=== PATIENT | male | born 1975 | race Two or more races ===

== ENCOUNTER 2019-12-20 17:30 | Emergency (ER) | payer MEDICAID ==
[~2019-12-20 17:30] MED LIST: GABA-347 PO; INSU100V5 SQ; LANTUS SQ
== END 2019-12-20 19:14 | disposition left against medical advice (07) ==
LOC: ER 17:30
DX: R05 Cough (principal); Z53.21 Procedure and treatment not carried out due to patient leaving prior to being seen by health care provider

== ENCOUNTER 2020-01-05 23:29 | Emergency (ER) | payer MEDICAID ==
[~2020-01-05] VITALS: Ht 175.3 cm; Wt 65.0 kg
[2020-01-05] MEDS ORDERED: normal saline 1000ml 1,000 ML IV ONE (23:40)
[2020-01-05 23:47] LABS: BASOPHILS # (AUTO) 0.1 X10'3 (0-0.2); BASOPHILS % (AUTO) 1.4 % (0-1); EOSINOPHILS # (AUTO) 0.2 X10'3 (0-0.9); EOSINOPHILS % (AUTO) 2.6 % (0-6); HEMATOCRIT 37.3 % (42.0-52.0); HEMOGLOBIN 12.5 g/dl (14.0-17.9); LYMPHOCYTES # (AUTO) 3.6 X10'3 (1.1-4.8); LYMPHOCYTES % (AUTO) 44.9 % (21-51); MEAN CORPUSCULAR HEMOGLOBIN 29.7 PG (27.0-31.0); MEAN CORPUSCULAR HGB CONC 33.4 g/dL (33.0-36.5); MEAN PLATELET VOLUME 8.1 FL (7.4-10.4); MONOCYTES # (AUTO) 0.7 X10'3 (0-0.9); MONOCYTES % (AUTO) 8.3 % (2-12); NEUTROPHILS # (AUTO) 3.4 X10'3 (1.8-7.7); NEUTROPHILS % (AUTO) 42.8 % (42-75); PLATELET COUNT 305 X10'3 (140-440); RED BLOOD COUNT 4.19 X10'6 (4.70-6.10); RED CELL DISTRIBUTION WIDTH 13.7 % (11.5-14.5)
[2020-01-06 00:02] LABS: ALANINE AMINOTRANSFERASE 90 U/L (12-78); ALBUMIN 3.8 G/DL (3.4-5.0); ALBUMIN/GLOBULIN RATIO 1.1 (1.1-1.5); ALKALINE PHOSPHATASE 142 IU/L (46-116); ANION GAP 11 (8-16); ASPARTATE AMINO TRANSFERASE 49 U/L (10-37); BILIRUBIN,TOTAL 0.6 MG/DL (0.1-1.0); BLOOD UREA NITROGEN 21 MG/DL (7-18); BUN/CREATININE RATIO 15.9 (5.4-32.0); CALCIUM 9.5 MG/DL (8.5-10.1); CHLORIDE 96 MMOL/L (99-107); CREATININE 1.32 MG/DL (0.60-1.10); GLUCOSE 308 MG/DL (70-104); POTASSIUM 3.7 MMOL/L (3.5-5.1); SODIUM 135 MMOL/L (135-145); TOTAL CARBON DIOXIDE 28.2 MMOL/L (24-32); TOTAL PROTEIN 7.2 G/DL (6.4-8.2); eGFR 59 ML/MIN
[2020-01-06] MEDS ORDERED: acetaminophen 325mg tablet PO ONE (01:15)
[2020-01-06 01:36] VITALS: BP 134/88
== END 2020-01-06 01:38 | disposition home or self-care (01) ==
LOC: ER 23:29
DX: E11.65 Type 2 diabetes mellitus with hyperglycemia (principal); M79.10 Myalgia, unspecified site; F19.10 Other psychoactive substance abuse, uncomplicated; N17.9 Acute kidney failure, unspecified; E78.00 Pure hypercholesterolemia, unspecified; I10 Essential (primary) hypertension; F31.9 Bipolar disorder, unspecified; F20.9 Schizophrenia, unspecified; F12.90 Cannabis use, unspecified, uncomplicated; F15.90 Other stimulant use, unspecified, uncomplicated; F11.90 Opioid use, unspecified, uncomplicated; Z86.19 Personal history of other infectious and parasitic diseases; Z59.0 Homelessness; Z88.8 Allergy status to other drugs, medicaments and biological substances; Z79.4 Long term (current) use of insulin; Z79.899 Other long term (current) drug therapy
CPT/HCPCS: 36415; 80053; 82948; 85025; 96360; 99283; J7030

== ENCOUNTER 2020-01-23 22:03 | Emergency (ER) | payer MEDICAID ==
[~2020-01-23] VITALS: Ht 175.3 cm; Wt 49.0 kg
[2020-01-23] MEDS ORDERED: normal saline 1000ML IV soln IVB ONE (22:50)
[2020-01-23 23:03] LABS: BASOPHILS # (AUTO) 0.1 X10'3 (0-0.2); BASOPHILS % (AUTO) 1.2 % (0-1); EOSINOPHILS # (AUTO) 0.2 X10'3 (0-0.9); EOSINOPHILS % (AUTO) 3.1 % (0-6); HEMATOCRIT 39.5 % (42.0-52.0); HEMOGLOBIN 12.8 g/dl (14.0-17.9); LYMPHOCYTES % (AUTO) 38.9 % (21-51); MEAN CORPUSCULAR HGB CONC 32.3 g/dL (33.0-36.5); MEAN CORPUSCULAR VOLUME 92.8 FL (78-98); MEAN PLATELET VOLUME 8.3 FL (7.4-10.4); MONOCYTES # (AUTO) 0.4 X10'3 (0-0.9); MONOCYTES % (AUTO) 8.6 % (2-12); NEUTROPHILS # (AUTO) 2.4 X10'3 (1.8-7.7); NEUTROPHILS % (AUTO) 48.2 % (42-75); PLATELET COUNT 238 X10'3 (140-440); RED BLOOD COUNT 4.26 X10'6 (4.70-6.10)
[2020-01-23 23:11] LABS: ALANINE AMINOTRANSFERASE 54 U/L (12-78); ALBUMIN 3.8 G/DL (3.4-5.0); ALBUMIN/GLOBULIN RATIO 1.1 (1.1-1.5); ALKALINE PHOSPHATASE 161 IU/L (46-116); ANION GAP 4 (8-16); ASPARTATE AMINO TRANSFERASE 33 U/L (10-37); BILIRUBIN,TOTAL 0.5 MG/DL (0.1-1.0); BLOOD UREA NITROGEN 15 MG/DL (7-18); BUN/CREATININE RATIO 12.7 (5.4-32.0); CALCIUM 9.1 MG/DL (8.5-10.1); CHLORIDE 95 MMOL/L (99-107); CREATININE 1.18 MG/DL (0.60-1.10); LIPASE 59 U/L (73-393); POTASSIUM 4.7 MMOL/L (3.5-5.1); SODIUM 128 MMOL/L (135-145); TOTAL CARBON DIOXIDE 28.9 MMOL/L (24-32); TOTAL PROTEIN 7.3 G/DL (6.4-8.2); eGFR 68 ML/MIN
[2020-01-23 23:13] LABS: GLUCOSE 583 MG/DL (70-104)
[2020-01-23] MEDS ORDERED: insulin glargine (Lantus) pen - multi-dose SQ ONE (23:20)
[2020-01-23] MEDS ORDERED: insulin regular, human 10 units/0.1 ml syringe SQ ONE (23:20)
[2020-01-23] MEDS ORDERED: INSU100V30 SQ (23:21)
[2020-01-23] MEDS ORDERED: LANTUS SQ (23:21)
[2020-01-24 00:35] VITALS: BP 154/101
[2020-01-24] MEDS ORDERED: SYRI-641 SUBCUT (00:55)
== END 2020-01-24 00:43 | disposition home or self-care (01) ==
LOC: ER 22:04
DX: E11.65 Type 2 diabetes mellitus with hyperglycemia (principal); E78.00 Pure hypercholesterolemia, unspecified; I10 Essential (primary) hypertension; F31.9 Bipolar disorder, unspecified; F20.9 Schizophrenia, unspecified; F12.90 Cannabis use, unspecified, uncomplicated; F15.90 Other stimulant use, unspecified, uncomplicated; Z86.19 Personal history of other infectious and parasitic diseases; F17.200 Nicotine dependence, unspecified, uncomplicated; Z88.8 Allergy status to other drugs, medicaments and biological substances; Z79.4 Long term (current) use of insulin; Z79.899 Other long term (current) drug therapy
CPT/HCPCS: 36415; 80053; 82009; 82948; 83690; 85025; 96372; 99284; J1815; J7030

== ENCOUNTER 2020-01-25 19:17 | Inpatient (IN) | payer MEDICAID ==
[~2020-01-25] VITALS: Ht 175.3 cm; Wt 60.2 kg
[~2020-01-25 19:17] MED LIST changes: +INSU100V30 SQ; +SYRI-641 SUBCUT
[2020-01-25] MEDS ORDERED: normal saline 1000ML IV soln IVB ONE (20:00)
[2020-01-25] MEDS ORDERED: ondansetron/PF 4mg/2ml inj IV ONE (20:05)
[2020-01-25 20:27] LABS: BASOPHILS % (AUTO) 0.8 % (0-1); EOSINOPHILS % (AUTO) 0.7 % (0-6); HEMATOCRIT 39.3 % (42.0-52.0); HEMOGLOBIN 12.9 g/dl (14.0-17.9); LYMPHOCYTES # (AUTO) 1.5 X10'3 (1.1-4.8); LYMPHOCYTES % (AUTO) 25.9 % (21-51); MEAN CORPUSCULAR HGB CONC 32.8 g/dL (33.0-36.5); MEAN CORPUSCULAR VOLUME 94.3 FL (78-98); MEAN PLATELET VOLUME 8.8 FL (7.4-10.4); MONOCYTES # (AUTO) 0.4 X10'3 (0-0.9); NEUTROPHILS # (AUTO) 3.8 X10'3 (1.8-7.7); NEUTROPHILS % (AUTO) 65.6 % (42-75); PLATELET COUNT 254 X10'3 (140-440); RED BLOOD COUNT 4.17 X10'6 (4.70-6.10); WHITE BLOOD COUNT 5.8 X10'3 (4.5-11.0)
[2020-01-25 20:36] LABS: ABG HCO3 21.6 mmol/L (22.0-26.0); ABG OXYGEN SATURATION 97.2 % (94-97); ABG PCO2 (T) 37.1 mmHg (35.0-48.0); ABG PO2 (T) 92.8 mmHg (75.0-100.0); ALLEN'S TEST POSITIVE; FMetHb 0.1 % (0.0-1.5); FO2Hb 93.2 % (94-97); PATIENT TEMPERATURE 36.7; TOTAL HEMOGLOBIN 13.6 G/dl (14.0-18.0)
[2020-01-25 20:44] LABS: CLARITY,URINE CLEAR (Clear); COLOR,URINE YELLOW (Yellow); GLUCOSE, URINE >=1000 mg/dl (Neg); KETONES,URINE TRACE mg/dl (Neg); LEUKOCYTE ESTERASE ,URINE NEGATIVE (Neg); NITRITES, URINE NEGATIVE (Neg); OCCULT BLOOD,URINE NEGATIVE (Neg); PROTEIN,URINE NEGATIVE (Neg); UROBILINOGEN,URINE 0.2 E.U/dL (0.2-1.0)
[2020-01-25 20:57] LABS: BACTERIA,URINE NONE SEEN /HPF (Neg); RBC,URINE 0-2 /HPF (0-2); SQUAMOUS EPITHELIAL CELL,UR FEW /LPF (FEW); UA COLLECTION TYPE URINAL; URINE AMPHETAMINE SCREEN NEGATIVE (Neg); URINE BARBITUATE SCREEN NEGATIVE (Neg); URINE BENZODIAZEPINES SCREEN NEGATIVE (Neg); URINE CANNABINOID SCREEN NEGATIVE (Neg); URINE COCAINE SCREEN NEGATIVE (Neg); URINE METHADONE SCREEN NEGATIVE (Neg); URINE OPIATE SCREEN NEGATIVE (Neg); URINE PHENCYCLIDINE SCREEN NEGATIVE (Neg); WBC,URINE NONE SEEN /HPF (0-4)
[2020-01-25 21:21] LABS: ALANINE AMINOTRANSFERASE 48 U/L (12-78); ALBUMIN 3.5 G/DL (3.4-5.0); ALBUMIN/GLOBULIN RATIO 1.1 (1.1-1.5); ALKALINE PHOSPHATASE 172 IU/L (46-116); ANION GAP 9 (8-16); ASPARTATE AMINO TRANSFERASE 26 U/L (10-37); BILIRUBIN,TOTAL 0.9 MG/DL (0.1-1.0); BLOOD UREA NITROGEN 21 MG/DL (7-18); BUN/CREATININE RATIO 16.7 (5.4-32.0); CALCIUM 7.9 MG/DL (8.5-10.1); CHLORIDE 87 MMOL/L (99-107); CREATININE 1.26 MG/DL (0.60-1.10); POTASSIUM 5.5 MMOL/L (3.5-5.1); TOTAL CARBON DIOXIDE 23.5 MMOL/L (24-32); TOTAL PROTEIN 6.8 G/DL (6.4-8.2); eGFR 63 ML/MIN
[2020-01-25 21:53] LABS: GLUCOSE 883 MG/DL (70-104); SODIUM 119 MMOL/L (135-145)
[2020-01-25] MEDS ORDERED: potassium CL 10mEq/100ml bag 100 ML IV PRN ×4 (22:10→22:50)
[2020-01-25] MEDS ORDERED: normal saline 1000ml 1,000 ML IV ONE (22:10)
[2020-01-25] MEDS ORDERED: sodium bicarbonate (8.4%) inj. 50 MEQ in dextrose 5% water 500ml 250 ML IV PRN (22:10)
[2020-01-25] MEDS ORDERED: potassium Cl 20 mEq SR tablet PO PRN ×4 (22:10→22:50)
[2020-01-25] MEDS ORDERED: Neutra Phos packet PO PRN (22:10)
[2020-01-25] MEDS ORDERED: insulin regular, human 10 units/0.1 ml syringe IV ONE (22:10)
[2020-01-25] MEDS ORDERED: normal saline 1000ml 1,000 ML IV SCH (22:10)
[2020-01-25] MEDS ORDERED: sodium phosphate inj. 15 MMOL in dextrose 5%-water 250 ML IV PRN (22:10)
[2020-01-25] MEDS ORDERED: sodium bicarbonate (8.4%) inj. 100 MEQ in dextrose 5% water 500ml 500 ML IV PRN (22:10)
[2020-01-25] MEDS ORDERED: sodium phosphate inj. 30 MMOL in dextrose 5%-water 250 ML IV PRN (22:10)
[2020-01-25] MEDS ORDERED: acetaminophen 325mg tablet PO PRN (22:50)
[2020-01-25] MEDS ORDERED: magnesium Cl slow-release 64mg tablet PO PRN (22:50)
[2020-01-25] MEDS ORDERED: magnesium 2GM in 50ml NS 50 ML IV PRN (22:50)
[2020-01-25] MEDS ORDERED: ondansetron/PF 4mg/2ml inj IV PRN (22:50)
[2020-01-25] MEDS ORDERED: magnesium 4gm in 100ml NS 100 ML IV PRN (22:50)
[2020-01-25] MEDS ORDERED: dextrose ORAL solution 15 GM/59 ML bottle PO PRN ×2 (23:00)
[2020-01-25] MEDS ORDERED: glucagon, human recombinant 1mg kit SUBCUT PRN (23:00)
[2020-01-25] MEDS ORDERED: dextrose 50%-water 50ml dispensing syringe IV PRN ×2 (23:00)
[2020-01-25] MEDS ORDERED: MESSAGE TO PHARMACY PO ONE (23:00)
[2020-01-25 23:04] LABS: PHOSPHORUS 3.8 MG/DL (2.3-4.5)
--- NOTE | 2020-01-26 00:35 | NUR ---
PT IS ASLEEP. IVF INFUSING WITHOUT DIFFICULTY INTO THE HAND.
[2020-01-26 01:06] LABS: ALBUMIN 3.1 G/DL (3.4-5.0); ANION GAP 5 (8-16); BLOOD UREA NITROGEN 16 MG/DL (7-18); BUN/CREATININE RATIO 16.2 (5.4-32.0); CALCIUM 8.2 MG/DL (8.5-10.1); CHLORIDE 102 MMOL/L (99-107); CREATININE 0.99 MG/DL (0.60-1.10); GLUCOSE 258 MG/DL (70-104); MAGNESIUM 2.1 MG/DL (1.5-2.4); PHOSPHORUS 2.8 MG/DL (2.3-4.5); POTASSIUM 3.4 MMOL/L (3.5-5.1); SODIUM 133 MMOL/L (135-145); TOTAL CARBON DIOXIDE 26.2 MMOL/L (24-32); eGFR 83 ML/MIN
[2020-01-26 02:00] VITALS: BP 141/85
[2020-01-26] MEDS: normal saline 1000ml 1,000 ML IV SCH ×4 (02:30→23:27)
[2020-01-26 05:41] LABS: BASOPHILS # (AUTO) 0.1 X10'3 (0-0.2); EOSINOPHILS # (AUTO) 0.2 X10'3 (0-0.9); EOSINOPHILS % (AUTO) 3.5 % (0-6); HEMATOCRIT 38.8 % (42.0-52.0); HEMOGLOBIN 12.9 g/dl (14.0-17.9); LYMPHOCYTES % (AUTO) 45.5 % (21-51); MEAN CORPUSCULAR HEMOGLOBIN 30.2 PG (27.0-31.0); MEAN CORPUSCULAR HGB CONC 33.3 g/dL (33.0-36.5); MEAN CORPUSCULAR VOLUME 90.5 FL (78-98); MEAN PLATELET VOLUME 8.3 FL (7.4-10.4); MONOCYTES # (AUTO) 0.5 X10'3 (0-0.9); MONOCYTES % (AUTO) 7.2 % (2-12); NEUTROPHILS # (AUTO) 2.8 X10'3 (1.8-7.7); NEUTROPHILS % (AUTO) 42.8 % (42-75); PLATELET COUNT 246 X10'3 (140-440); RED BLOOD COUNT 4.29 X10'6 (4.70-6.10); WHITE BLOOD COUNT 6.7 X10'3 (4.5-11.0)
--- NOTE | 2020-01-26 06:13 | NUR ---
Problems reprioritized. Patient report given, questions answered & plan of care reviewed with Carina PYLE.
--- NOTE | 2020-01-26 06:20 | NUR ---
Patient in room PCU 3024. I have received report from Tyrell PYLE and had the opportunity to ask questions and assume patient care.
[2020-01-26 07:00] VITALS: BP 149/90
[2020-01-26 07:28] LABS: ANION GAP 9 (8-16); BLOOD UREA NITROGEN 15 MG/DL (7-18); BUN/CREATININE RATIO 17.2 (5.4-32.0); CALCIUM 7.6 MG/DL (8.5-10.1); CHLORIDE 99 MMOL/L (99-107); CREATININE 0.87 MG/DL (0.60-1.10); GLUCOSE 277 MG/DL (70-104); POTASSIUM 4.2 MMOL/L (3.5-5.1); SODIUM 132 MMOL/L (135-145); TOTAL CARBON DIOXIDE 24.3 MMOL/L (24-32); eGFR > 90 ML/MIN
[2020-01-26] MEDS: K and/or MAG REPLACEMENT MC SCH ×2 (08:00→20:00)
[2020-01-26] MEDS ORDERED: gabapentin 300mg capsule PO SCH (08:00)
[2020-01-26] MEDS ORDERED: K and/or MAG REPLACEMENT MC SCH (08:00)
[2020-01-26] MEDS: heparin, porcine 5000 units/ml vial SQ SCH ×2 (08:42→21:39)
[2020-01-26] MEDS: insulin Lispro (HumaLOG) vial - multi-dose SQ SCH ×3 (08:49→19:38)
[2020-01-26] MEDS: pantoprazole 40 MG vial IV SCH (08:51)
--- NOTE | 2020-01-26 10:10 | NUR ---
Dr. Schwarz at bedside with patient and nurse. Monitoring blood sugars. New order to add PT eval, 0.5 mg ativan po q4h, social consult and discharge planning to help get medications. Will continue to monitor.
[2020-01-26 11:00] VITALS: BP 157/96
[2020-01-26] MEDS: LORazepam 0.5 MG tablet PO PRN ×2 (11:03→17:40)
--- NOTE | 2020-01-26 13:39 | NUR ---
Pt with A1c 11.1%, BG 883 on admit. Attempted visit with pt at bedside however pt sleeping and did not wake with verbal cues. Written DM education and RD contact information left at patient's bedside. Per H&P pt is homeless and has not had his insulin for 2 days. SW has already been consulted, pt can't afford medications per consult. Pt currently on a CHO controlled diet documented with 100% PO intake. D/w dietary to send double protein TID for satiety. Will continue to follow and remain available for possible f/u verbal DM education. Addendum: 01/26/20 at [address] Amended: Links added.
[2020-01-26 15:00] VITALS: BP 151/96
[2020-01-26 18:00] VITALS: BP 157/98
--- NOTE | 2020-01-26 18:22 | NUR ---
Problems reprioritized. Patient report given, questions answered & plan of care reviewed with Lencho PYLE.
--- NOTE | 2020-01-26 18:27 | NUR ---
Patient in room U 3024. I have received report from Carina Watkins and had the opportunity to ask questions and assume patient care.
[2020-01-26] MEDS: insulin glargine (Lantus) pen - multi-dose SQ SCH (21:36)
[2020-01-26 22:00] VITALS: BP 143/95
[2020-01-27 02:00] VITALS: BP 160/109
--- NOTE | 2020-01-27 02:50 | NUR ---
Talha HANNON regarding high blood pressure. PAGER ID: [phone] MESSAGE: Re: [place], Rm: [phone]. Patient systolic blood pressure 160. No PRNs available. Please advise. Thank you, Lencho PYLE [phone]
[2020-01-27] MEDS ORDERED: hyDRALAzine 10mg tablet PO PRN ×2 (02:55)
[2020-01-27] MEDS: normal saline 1000ml 1,000 ML IV SCH ×4 (03:22→23:53)
[2020-01-27 05:52] LABS: ANION GAP 8 (8-16); BLOOD UREA NITROGEN 16 MG/DL (7-18); BUN/CREATININE RATIO 22.2 (5.4-32.0); CALCIUM 8.4 MG/DL (8.5-10.1); CHLORIDE 103 MMOL/L (99-107); CREATININE 0.72 MG/DL (0.60-1.10); GLUCOSE 103 MG/DL (70-104); POTASSIUM 3.6 MMOL/L (3.5-5.1); SODIUM 136 MMOL/L (135-145); TOTAL CARBON DIOXIDE 25.2 MMOL/L (24-32); eGFR > 90 ML/MIN
[2020-01-27 05:54] LABS: BASOPHILS % (AUTO) 0.7 % (0-1); EOSINOPHILS # (AUTO) 0.2 X10'3 (0-0.9); EOSINOPHILS % (AUTO) 3.1 % (0-6); HEMATOCRIT 42.5 % (42.0-52.0); HEMOGLOBIN 14.1 g/dl (14.0-17.9); LYMPHOCYTES # (AUTO) 2.7 X10'3 (1.1-4.8); LYMPHOCYTES % (AUTO) 46.6 % (21-51); MEAN CORPUSCULAR HEMOGLOBIN 30.2 PG (27.0-31.0); MEAN CORPUSCULAR HGB CONC 33.2 g/dL (33.0-36.5); MEAN CORPUSCULAR VOLUME 90.8 FL (78-98); MEAN PLATELET VOLUME 8.5 FL (7.4-10.4); MONOCYTES # (AUTO) 0.4 X10'3 (0-0.9); MONOCYTES % (AUTO) 6.3 % (2-12); NEUTROPHILS # (AUTO) 2.6 X10'3 (1.8-7.7); NEUTROPHILS % (AUTO) 43.3 % (42-75); PLATELET COUNT 252 X10'3 (140-440); RED BLOOD COUNT 4.67 X10'6 (4.70-6.10); RED CELL DISTRIBUTION WIDTH 14.5 % (11.5-14.5); WHITE BLOOD COUNT 5.9 X10'3 (4.5-11.0)
[2020-01-27 06:33] LABS: MAGNESIUM 1.8 MG/DL (1.5-2.4)
--- NOTE | 2020-01-27 06:39 | NUR ---
Problems reprioritized. Patient report given, questions answered & plan of care reviewed with Usha PYLE.
--- NOTE | 2020-01-27 06:50 | NUR ---
Patient in room PCU 3024. I have received report from Lencho PYLE and had the opportunity to ask questions and assume patient care.
[2020-01-27 07:00] VITALS: BP 145/104
[2020-01-27] MEDS: K and/or MAG REPLACEMENT MC SCH ×2 (08:22→20:00)
[2020-01-27] MEDS: lisinopril 20mg tablet PO SCH (08:27)
[2020-01-27] MEDS: gabapentin 300mg capsule PO SCH (08:27)
[2020-01-27] MEDS: pantoprazole 40 MG vial IV SCH (08:30)
[2020-01-27] MEDS: heparin, porcine 5000 units/ml vial SQ SCH ×2 (08:30→20:19)
[2020-01-27] MEDS: insulin Lispro (HumaLOG) vial - multi-dose SQ SCH ×3 (08:51→19:23)
[2020-01-27 11:00] VITALS: BP 143/96
--- NOTE | 2020-01-27 12:15 | NUR ---
Not notified Resource RN was called off PCU floor and unable to do 1200 blood sugars. Pt has already eaten lunch. records custodian notified. Will continue to monitor.
--- NOTE | 2020-01-27 14:21 | NUR ---
Malnutrition consult: Pt has normal strength, no edema/wounds, PO 90-100% carb controlled meals meeting needs. Current wt documentation error; CAYDEN d/w RN regarding updated wt this admit to further determine accurate nutrition needs. At this time pt does not meet minimum malnutrition criteria. Addendum: 01/27/20 at [address] Amended: Links added.
[2020-01-27 15:00] VITALS: BP 142/86
[2020-01-27] MEDS: LORazepam 0.5 MG tablet PO PRN ×2 (16:45→20:33)
--- NOTE | 2020-01-27 17:00 | NUR ---
Pt instructed throughout shift of need to void/measure urine output with pt verbalizing understanding, but refused to use urinal and voided per toilet. Pt states "I know the nurses want me to use that thing to pee in but I don't want to". Will continue to monitor.
--- NOTE | 2020-01-27 17:01 | NUR ---
Throughout shift, pt would cite pain to PCT performing VS, yet when this RN went in to assess pt's pain, he would say "it's not that bad" and refuse pain meds. Will continue to monitor.
[2020-01-27 18:00] VITALS: BP 145/84
--- NOTE | 2020-01-27 18:30 | NUR ---
Problems reprioritized. Patient report given, questions answered & plan of care reviewed with Yoli PYLE.
--- NOTE | 2020-01-27 18:40 | NUR ---
Patient in room PCU 3024. I have received report from Usha PYLE and had the opportunity to ask questions and assume patient care.
--- NOTE | 2020-01-27 18:45 | NUR ---
At 1750 Pt received Humalog 10 units SQ, not 140 units. telephone technician notified. Phoned Pharmacy and spoke with Mariya Ingram. NOC shift notified and will continue to monitor.
[2020-01-27] MEDS: HYDROcodone/acetaminophen 5mg/325mg tablet PO PRN (20:19)
[2020-01-27 22:30] VITALS: BP 122/63
[2020-01-27] MEDS: insulin glargine (Lantus) pen - multi-dose SQ SCH (22:56)
[2020-01-28] MEDS: LORazepam 0.5 MG tablet PO PRN ×2 (01:38→09:06)
[2020-01-28 02:00] VITALS: BP 128/74
[2020-01-28 05:18] LABS: BASOPHILS % (AUTO) 0.8 % (0-1); EOSINOPHILS # (AUTO) 0.2 X10'3 (0-0.9); EOSINOPHILS % (AUTO) 4.1 % (0-6); HEMATOCRIT 36.7 % (42.0-52.0); LYMPHOCYTES # (AUTO) 2.4 X10'3 (1.1-4.8); LYMPHOCYTES % (AUTO) 51.4 % (21-51); MEAN CORPUSCULAR HEMOGLOBIN 29.7 PG (27.0-31.0); MEAN CORPUSCULAR HGB CONC 32.8 g/dL (33.0-36.5); MEAN CORPUSCULAR VOLUME 90.5 FL (78-98); MEAN PLATELET VOLUME 8.3 FL (7.4-10.4); MONOCYTES # (AUTO) 0.3 X10'3 (0-0.9); MONOCYTES % (AUTO) 7.2 % (2-12); NEUTROPHILS # (AUTO) 1.7 X10'3 (1.8-7.7); NEUTROPHILS % (AUTO) 36.5 % (42-75); PLATELET COUNT 234 X10'3 (140-440); RED BLOOD COUNT 4.05 X10'6 (4.70-6.10); RED CELL DISTRIBUTION WIDTH 14.3 % (11.5-14.5); WHITE BLOOD COUNT 4.7 X10'3 (4.5-11.0)
[2020-01-28] MEDS: normal saline 1000ml 1,000 ML IV SCH ×3 (06:09→19:26)
--- NOTE | 2020-01-28 06:30 | NUR ---
Problems reprioritized. Patient report given, questions answered & plan of care reviewed with Dominic Amaya.
[2020-01-28 07:00] VITALS: BP 142/70
[2020-01-28 07:03] LABS: TOTAL CELLS COUNTED 100
[2020-01-28 07:04] LABS: PLATELET ESTIMATE NORMAL; SMUDGE CELLS FEW
[2020-01-28] MEDS: HYDROcodone/acetaminophen 5mg/325mg tablet PO PRN ×5 (07:31→21:34)
[2020-01-28] MEDS: pantoprazole 40 MG vial IV SCH (07:31)
[2020-01-28] MEDS: gabapentin 300mg capsule PO SCH (07:31)
[2020-01-28] MEDS: lisinopril 20mg tablet PO SCH (07:31)
[2020-01-28] MEDS: heparin, porcine 5000 units/ml vial SQ SCH ×2 (07:32→19:36)
[2020-01-28] MEDS: K and/or MAG REPLACEMENT MC SCH ×2 (08:00→19:19)
[2020-01-28] MEDS: insulin Lispro (HumaLOG) vial - multi-dose SQ SCH ×5 (09:11→21:40)
[2020-01-28 10:08] LABS: ALANINE AMINOTRANSFERASE 46 U/L (12-78); ALBUMIN 3.1 G/DL (3.4-5.0); ALKALINE PHOSPHATASE 112 IU/L (46-116); ANION GAP 6 (8-16); ASPARTATE AMINO TRANSFERASE 31 U/L (10-37); BILIRUBIN,TOTAL 0.3 MG/DL (0.1-1.0); BLOOD UREA NITROGEN 17 MG/DL (7-18); BUN/CREATININE RATIO 14.9 (5.4-32.0); CALCIUM 7.9 MG/DL (8.5-10.1); CHLORIDE 97 MMOL/L (99-107); CREATININE 1.14 MG/DL (0.60-1.10); POTASSIUM 5.1 MMOL/L (3.5-5.1); SODIUM 128 MMOL/L (135-145); TOTAL CARBON DIOXIDE 25.5 MMOL/L (24-32); TOTAL PROTEIN 6.2 G/DL (6.4-8.2); eGFR 70 ML/MIN
[2020-01-28 10:14] LABS: GLUCOSE 555 MG/DL (70-104)
--- NOTE | 2020-01-28 10:15 | NUR ---
Critical lab: Glusose 555. Notified primary EDENILSON Alfaro.
[2020-01-28] MEDS ORDERED: insulin glargine (Lantus) pen - multi-dose SQ ONE (10:50)
[2020-01-28 11:00] VITALS: BP 132/82
[2020-01-28 15:00] VITALS: BP 157/94
[2020-01-28 18:00] VITALS: BP 137/80
--- NOTE | 2020-01-28 18:33 | NUR ---
I have received report from Park PYLE and had the opportunity to ask questions and assume patient care.
--- NOTE | 2020-01-28 18:37 | NUR ---
Problems reprioritized. Patient report given, questions answered & plan of care reviewed with Batsheva PYLE.
[2020-01-28] MEDS: LORazepam 1 MG tablet PO PRN (19:50)
--- NOTE | 2020-01-28 20:03 | NUR ---
new urinal put in restroom and marked "A" and patient informed to use urinal so we can measure input and output
[2020-01-28] MEDS: insulin glargine (Lantus) pen - multi-dose SQ SCH (21:39)
[2020-01-28 22:00] VITALS: BP 138/83
[2020-01-29 02:00] VITALS: BP 118/71
[2020-01-29] MEDS: HYDROcodone/acetaminophen 5mg/325mg tablet PO PRN ×2 (02:32→07:34)
[2020-01-29] MEDS: normal saline 1000ml 1,000 ML IV SCH ×2 (02:32→07:58)
[2020-01-29] MEDS: LORazepam 1 MG tablet PO PRN (04:55)
[2020-01-29 05:51] LABS: BASOPHILS # (AUTO) 0.1 X10'3 (0-0.2); EOSINOPHILS # (AUTO) 0.2 X10'3 (0-0.9); EOSINOPHILS % (AUTO) 3.2 % (0-6); HEMATOCRIT 38.9 % (42.0-52.0); HEMOGLOBIN 12.8 g/dl (14.0-17.9); LYMPHOCYTES # (AUTO) 2.4 X10'3 (1.1-4.8); LYMPHOCYTES % (AUTO) 48.2 % (21-51); MEAN CORPUSCULAR VOLUME 90.9 FL (78-98); MEAN PLATELET VOLUME 8.7 FL (7.4-10.4); MONOCYTES # (AUTO) 0.4 X10'3 (0-0.9); MONOCYTES % (AUTO) 7.7 % (2-12); NEUTROPHILS % (AUTO) 39.9 % (42-75); PLATELET COUNT 249 X10'3 (140-440); RED BLOOD COUNT 4.28 X10'6 (4.70-6.10); RED CELL DISTRIBUTION WIDTH 14.3 % (11.5-14.5); WHITE BLOOD COUNT 4.9 X10'3 (4.5-11.0)
--- NOTE | 2020-01-29 06:16 | NUR ---
Problems reprioritized. Patient report given, questions answered & plan of care reviewed with Park PYLE.
--- NOTE | 2020-01-29 06:24 | NUR ---
Patient in room PCU 3024. I have received report from Batsheva PLYE and had the opportunity to ask questions and assume patient care.
[2020-01-29 07:00] VITALS: BP 138/78
[2020-01-29] MEDS: gabapentin 300mg capsule PO SCH (07:33)
[2020-01-29] MEDS: lisinopril 20mg tablet PO SCH (07:33)
[2020-01-29] MEDS: pantoprazole 40 MG vial IV SCH (07:33)
[2020-01-29] MEDS: heparin, porcine 5000 units/ml vial SQ SCH (07:33)
[2020-01-29] MEDS: K and/or MAG REPLACEMENT MC SCH (08:00)
[2020-01-29] MEDS: insulin Lispro (HumaLOG) vial - multi-dose SQ SCH (08:56)
[2020-01-29 10:18] LABS: BLOOD UREA NITROGEN 19 MG/DL (7-18); BUN/CREATININE RATIO 16.1 (5.4-32.0); CHLORIDE 98 MMOL/L (99-107); CREATININE 1.18 MG/DL (0.60-1.10); POTASSIUM 4.3 MMOL/L (3.5-5.1); SODIUM 130 MMOL/L (135-145); eGFR 68 ML/MIN
[2020-01-29 10:19] LABS: ALANINE AMINOTRANSFERASE 47 U/L (12-78); ALKALINE PHOSPHATASE 96 IU/L (46-116); ANION GAP 6 (8-16); ASPARTATE AMINO TRANSFERASE 42 U/L (10-37); BILIRUBIN,TOTAL 0.3 MG/DL (0.1-1.0); TOTAL CARBON DIOXIDE 26.3 MMOL/L (24-32); TOTAL PROTEIN 5.9 G/DL (6.4-8.2)
[2020-01-29 10:24] LABS: GLUCOSE 483 MG/DL (70-104)
[2020-01-29 11:00] VITALS: BP 137/92
[2020-01-29] MEDS ORDERED: diazepam 5mg tablet PO PRN (11:30)
--- NOTE | 2020-01-29 15:20 | NUR ---
Page sent to Dr. Schwarz: PAGER ID: [phone] MESSAGE: [phone] Kumar Alcantara: Patient was found by security near elevators, became agitated and left AMA after I tried to get him to stay. Thanks, Park [phone]
--- NOTE | 2020-01-29 15:20 | NUR ---
Patient was found by security exiting elevator with IV pole, security escorted patient back to PCU. Patient states "I'm ready to leave right now since my doctor won't come see me." Patient reminded that Dr. Schwarz saw him earlier and the 3 of us had discussed his plan of care. Primary RN reiterated the importance of staying another night to monitor his blood glucose and his prescriptions for insulin upon discharge. Patient stated "I don't care I'm going." RN brought AMA paperwork and overheard patient stating to his roommate "I'm about to go on a spree." Patient signed AMA paper and left with security after IV was discontinued and playground monitor removed.
== END 2020-01-29 14:44 | disposition left against medical advice (07) | DRG 420 ==
LOC: ER 19:17 → ED HOLD 22:49 → PCU 3S 01-26 01:43
PROVIDERS: ADMIT Internal Medicine; ATTEND Family Medicine
DX: E11.65 Type 2 diabetes mellitus with hyperglycemia (principal); E78.00 Pure hypercholesterolemia, unspecified; I10 Essential (primary) hypertension; B19.20 Unspecified viral hepatitis C without hepatic coma; F31.9 Bipolar disorder, unspecified; E11.42 Type 2 diabetes mellitus with diabetic polyneuropathy; F12.90 Cannabis use, unspecified, uncomplicated; E87.1 Hypo-osmolality and hyponatremia; R10.13 Epigastric pain; E86.0 Dehydration; E87.5 Hyperkalemia; F41.9 Anxiety disorder, unspecified; E87.2 Acidosis; Z53.29 Procedure and treatment not carried out because of patient's decision for other reasons; F20.9 Schizophrenia, unspecified; Z59.0 Homelessness; Z88.8 Allergy status to other drugs, medicaments and biological substances; Z79.4 Long term (current) use of insulin; Z79.899 Other long term (current) drug therapy; Z91.19 Patient's noncompliance with other medical treatment and regimen
CPT/HCPCS: 36415; 36600; 71045; 80048; 80053; 80305; 81001; 82803; 82948; 83036; 83735; 84100; 85007; 85018; 85025; 87081; 93005; 96361; 96374; 96375; 97161; 97530; 99285; C9113; G0378; J1644; J1815; J2405; J7030

== ENCOUNTER 2021-10-04 17:23 | Emergency (ER) | payer MEDICAID ==
[~2021-10-04] VITALS: Ht 172.7 cm; Wt 61.4 kg
[2021-10-04] MEDS: naloxone 2mg/2ml inj IV STA ×2 (18:18→18:34)
[2021-10-04] MEDS ORDERED: normal saline 1000ML IV soln IVB ONE ×3 (18:20→19:15)
[2021-10-04 18:50] LABS: BASOPHILS # (AUTO) 0.1 X10'3 (0-0.2); BASOPHILS % (AUTO) 0.7 % (0-1); EOSINOPHILS # (AUTO) 0.1 X10'3 (0-0.9); EOSINOPHILS % (AUTO) 1.5 % (0-6); HEMATOCRIT 33.8 % (42.0-52.0); HEMOGLOBIN 11.2 g/dl (14.0-17.9); LYMPHOCYTES # (AUTO) 1.5 X10'3 (1.1-4.8); LYMPHOCYTES % (AUTO) 18.1 % (21-51); MEAN CORPUSCULAR HEMOGLOBIN 30.4 PG (27.0-31.0); MEAN CORPUSCULAR HGB CONC 33.1 g/dL (33.0-36.5); MEAN CORPUSCULAR VOLUME 91.9 FL (78-98); MEAN PLATELET VOLUME 7.9 FL (7.4-10.4); MONOCYTES # (AUTO) 0.6 X10'3 (0-0.9); MONOCYTES % (AUTO) 7.7 % (2-12); NEUTROPHILS # (AUTO) 5.9 X10'3 (1.8-7.7); PLATELET COUNT 237 X10'3 (140-440); RED BLOOD COUNT 3.68 X10'6 (4.70-6.10); RED CELL DISTRIBUTION WIDTH 14.4 % (11.5-14.5); WHITE BLOOD COUNT 8.2 X10'3 (4.5-11.0)
[2021-10-04 18:54] LABS: ALANINE AMINOTRANSFERASE 99 U/L (12-78); ALBUMIN 3.4 G/DL (3.4-5.0); ALKALINE PHOSPHATASE 268 IU/L (46-116); ANION GAP 6 (8-16); ASPARTATE AMINO TRANSFERASE 103 U/L (10-37); BILIRUBIN,TOTAL 0.4 MG/DL (0.1-1.0); BLOOD UREA NITROGEN 11 MG/DL (7-18); BUN/CREATININE RATIO 8.8 (5.4-32.0); CALCIUM 8.4 MG/DL (8.5-10.1); CHLORIDE 95 MMOL/L (99-107); CREATININE 1.25 MG/DL (0.60-1.10); ETHANOL < 0.010 GM/DL (0.0-0.010); POTASSIUM 3.6 MMOL/L (3.5-5.1); SODIUM 132 MMOL/L (135-145); TOTAL CARBON DIOXIDE 31.1 MMOL/L (24-32); TOTAL PROTEIN 6.8 G/DL (6.4-8.2); eGFR 63 ML/MIN
[2021-10-04 18:58] LABS: GLUCOSE 596 MG/DL (70-104)
[2021-10-04] MEDS ORDERED: POTASSIUM BICARB 20meq eff tab 20 MEQ TABLET.EFF PO SCH (19:15)
[2021-10-04] MEDS ORDERED: insulin regular, human 10 units/0.1 ml syringe IV ONE (19:15)
[2021-10-04 20:30] VITALS: BP 141/97
== END 2021-10-04 22:29 | disposition home or self-care (01) ==
LOC: ER 17:24
DX: T40.691A Poisoning by other narcotics, accidental (unintentional), initial encounter (principal); E10.65 Type 1 diabetes mellitus with hyperglycemia; E78.00 Pure hypercholesterolemia, unspecified; I10 Essential (primary) hypertension; F12.90 Cannabis use, unspecified, uncomplicated; F15.90 Other stimulant use, unspecified, uncomplicated; F11.90 Opioid use, unspecified, uncomplicated; Z59.00 Homelessness unspecified; Y92.89 Other specified places as the place of occurrence of the external cause
CPT/HCPCS: 36415; 71045; 80053; 80320; 82948; 85025; 93005; 96361; 96374; 99285; J1815; J7030; J2310

== ENCOUNTER 2021-10-05 04:25 | Emergency (ER) | payer MEDICAID ==
[~2021-10-05] VITALS: Ht 165.1 cm; Wt 65.9 kg
[2021-10-05] MEDS ORDERED: normal saline 1000ml 1,000 ML IV ONE ×4 (04:40→06:05)
[2021-10-05 05:07] LABS: ANION GAP 8 (8-16); BLOOD UREA NITROGEN 12 MG/DL (7-18); BUN/CREATININE RATIO 10.5 (5.4-32.0); CALCIUM 7.3 MG/DL (8.5-10.1); CHLORIDE 96 MMOL/L (99-107); CREATININE 1.14 MG/DL (0.60-1.10); POTASSIUM 4.5 MMOL/L (3.5-5.1); SODIUM 129 MMOL/L (135-145); TOTAL CARBON DIOXIDE 24.6 MMOL/L (24-32); eGFR 70 ML/MIN
[2021-10-05 05:10] LABS: GLUCOSE 702 MG/DL (70-104)
[2021-10-05] MEDS ORDERED: insulin regular, human 10 units/0.1 ml syringe IV ONE ×2 (05:25→06:40)
[2021-10-05 07:33] VITALS: BP 150/91
== END 2021-10-05 07:30 ==
LOC: ER 04:25
DX: R73.9 Hyperglycemia, unspecified (principal); Z02.89 Encounter for other administrative examinations
CPT/HCPCS: 36415; 80048; 82948; 96361; 96374; 96376; 99284; J7030